=== PATIENT | male | born 1980 | race Two or more races ===

== ENCOUNTER 2022-04-19 17:41 | Emergency (ER) | payer OTHER ==
--- NOTE | 2022-04-19 18:00 | NUR ---
CALLED FOR TRIAGE, NO RESPONSE
--- NOTE | 2022-04-19 18:15 | NUR ---
CALLED FOR TRIAGE, NO RESPONSE
== END 2022-04-19 18:35 | disposition left against medical advice (07) ==
LOC: ER 17:43
DX: Z53.21 Procedure and treatment not carried out due to patient leaving prior to being seen by health care provider (principal)